=== PATIENT | female | born 1955 | race Caucasian/White ===

== ENCOUNTER → 2017-03-08 | Outpatient (CLI) | payer BC | LOC: FIMAGING 15:21 | PROVIDERS: ATTEND Orthopaedic Surgery | DX: M16.0 Bilateral primary osteoarthritis of hip (principal); M46.1 Sacroiliitis, not elsewhere classified ==

== ENCOUNTER → 2017-03-18 | Outpatient (CLI) | payer BC ==
[~2017-03-18] MED LIST: GADOBUTROL 10 ML VIAL IVP ONE
== END ==
LOC: FIMAGING 08:47
PROVIDERS: ATTEND Physician Assistant
DX: M99.85 Other biomechanical lesions of pelvic region (principal); M16.0 Bilateral primary osteoarthritis of hip; M85.451 Solitary bone cyst, right pelvis; M85.452 Solitary bone cyst, left pelvis; M65.88 Other synovitis and tenosynovitis, other site
CPT/HCPCS: A9585

== ENCOUNTER 2017-03-24 07:56 | Inpatient (IN) | payer BC ==
[~2017-03-24 07:56] MED LIST changes: -GADOBUTROL 10 ML VIAL IVP ONE; +ROPIVACAINE 0.2% 80 MG, EPINEPHrine 0.2 MG, KETOROLAC TROMETHAMINE 30 MG in BAG 0 ML IU ONE; +TRANEXAMIC ACID 3,000 MG in NS 50 ML IRR ONE; +TRANEXAMIC ACID 3,000 MG/50 ML BAG IRR ONE
[2017-03-24] MEDS ORDERED: LR 1,000 ML IV ONE (09:00)
[2017-03-24] MEDS ORDERED: ACETAMINOPHEN 325 MG TAB PO ONE (09:02)
[2017-03-24] MEDS ORDERED: ceFAZolin 2 GM/SWFI 2 GM/20 ML SYR IVP ONE (09:02)
[2017-03-24] MEDS ORDERED: DEXAMETHASONE 4 MG/ML VIAL IVP ONE (09:02)
[2017-03-24] MEDS ORDERED: FAMOTIDINE 20 MG TAB PO ONE (09:02)
--- NOTE | 2017-03-24 09:05 | PDHPUP ---
History & Physical Update H&P update statement: This history and physical update is based on an assessment of the patient which was completed after admission or registration (within 24 hours), but prior to the surgery/procedure. H&P update: H&P reviewed & patient examined, no change in patient's condition since H&P completed
--- NOTE | 2017-03-24 10:31 | PDANEPAE ---
ANE Past Medical History - Cardiovascular History Hx Hypertension: Yes Hx Arrhythmias: No Hx Chest Pain: No Hx Coronary Artery / Peripheral Vascular Disease: No Hx CHF / Valvular Disease: No Hx Palpitations: No - Pulmonary History Hx COPD: No Hx Asthma/Reactive Airway Disease: No Hx Recent Upper Respiratory Infection: No Hx Oxygen in Use at Home: No Hx Sleep Apnea: No Sleep Apnea Screening Result - Last Documented: Negative - Neurologic History Hx Cerebrovascular Accident: No Hx Seizures: No Hx Dementia: No - Endocrine History Hx Diabetes: No - Renal History Hx Renal Disorders: No - Liver History Hx Hepatic Disorders: No - Neurological & Psychiatric Hx Hx Neurological and Psychiatric Disorders: No - Cancer History Hx Cancer: No - Congenital Disorder History Hx Congenital Disorders: No - GI History Hx Gastrointestinal Disorders: No - Other Health History Other Health History: NONE - Chronic Pain History Chronic Pain: Yes (BILAT KNEES) - Surgical History Prior Surgeries: right knee meniscus repair ANE Review of Systems Review of Systems: - Exercise capacity METS (RN): 5 METS ANE Patient History - Allergies Allergies/Adverse Reactions: No Known Allergies Allergy (Verified 03/24/17 09:51) - Home Medications Home Medications: Atorvastatin Calcium [Lipitor 20 mg (*)] 20 mg PO HS 02/26/17 [Last Taken 20:00] Cholecalciferol Vit D3 [Vitamin D3 (*)] 1,000 units PO DAILY 02/26/17 [Last Taken 03/10/17] Herbals/Supplements -Info Only 1 ea PO DAILY 02/26/17 [Last Taken 03/10/17] Levothyroxine [Synthroid 125 mcg (*)] 125 mcg PO HS 02/26/17 [Last Taken 20:00] Valsartan [Diovan (*)] 80 mg PO HS 02/26/17 [Last Taken 03/23/17 20:00] - NPO status NPO Since - Liquids (Date): 03/23/17 NPO Since - Liquids (Time): 22:00 NPO Since - Solids (Date): 03/23/17 NPO Since - Solids (Time): 20:00 - Smoking Hx Smoking Status: Former smoker - Family Anes Hx Family Hx Anesthesia Complications: none ANE Labs/Vital Signs - Vital Signs Blood Pressure: 124/81 Heart Rate: 78 Respiratory Rate: 16 O2 Sat (%): 94 Height: 170.18 cm Weight: 61.235 kg
[2017-03-24] MEDS ORDERED: MIDAZOLAM 2 MG/2 ML VIAL ONE (10:32)
[2017-03-24] MEDS ORDERED: PROPOFOL/EMULSION 500 MG/50 ML BOTTLE IV ONE ×2 (10:38→11:25)
[2017-03-24] MEDS ORDERED: LIDOCAINE 2% 5 ML SDV ONE (10:38)
[2017-03-24] MEDS ORDERED: NALOXONE HCL 0.4 MG/ML INJ IVP PRN (11:50)
[2017-03-24] MEDS ORDERED: ONDANSETRON 4 MG/2 ML VIAL IVP PRN ×2 (11:50→12:03)
[2017-03-24] MEDS ORDERED: diphenhydrAMINE 25 MG CAP PO PRN (12:03)
[2017-03-24] MEDS ORDERED: TEMAZEPAM 15 MG CAP PO PRN (12:03)
[2017-03-24] MEDS ORDERED: POLYETHYLENE GLYCOL 3350 17 GM PKT PO PRN (12:03)
[2017-03-24] MEDS ORDERED: MAGNESIUM HYDROXIDE 30 ML UDCUP PO PRN (12:03)
[2017-03-24] MEDS ORDERED: PROMETHAZINE HCL 25 MG SUPPR PR PRN (12:03)
[2017-03-24] MEDS ORDERED: LACTULOSE 20 GM/30 ML UDCUP PO PRN (12:03)
[2017-03-24] MEDS ORDERED: PROMETHAZINE HCL 25 MG/ML INJ IVP PRN (12:03)
[2017-03-24] MEDS ORDERED: METOCLOPRAMIDE 10 MG/2 ML VIAL IVP PRN (12:03)
[2017-03-24] MEDS ORDERED: DIPHENOXYLATE/ATROPINE LOMOTIL 1 TAB PO PRN (12:03)
[2017-03-24] MEDS ORDERED: ONDANSETRON DISINTEGRATING 4 MG TAB PO PRN (12:03)
[2017-03-24] MEDS ORDERED: BISACODYL 10 MG SUPP PR PRN (12:03)
--- NOTE | 2017-03-24 12:04 | POSTOPPROG ---
Post Op Note Date of Operation: 03/24/17 Surgeon: Mc Bear Interpretive Program Coordinator: marky bear Anesthesiologist: dr. guzman Anesthesia: Spinal Pre-op Diagnosis: right hip OA Post-op Diagnosis: same Indication: right hip pain due to OA that failed conservative measures Procedure: R FELISHA ant approach, robot assisted Findings: severe hip OA Inf/Abcess present in the surg proc area at time of surgery?: No EBL: 100-500
--- NOTE | 2017-03-24 12:14 | POSTANESTH ---
Post Anesthetic Evaluation Cardiovascular Status: Similar to Pre-Op Cond Respiratory Status: Similar to Pre-op Cond. Level of Consciousness/Mental Status: Can Participate in Eval Pain Control: Adequate, Prn Tx Ordered Nausea/Vomiting Control: Adequate, Prn Tx Ordered Complications Possibly Related to Anesthesia: None Noted
[2017-03-24] MEDS ORDERED: HYDROmorphONE/DILAUDID 1 MG/ML INJ ONE (12:15)
[2017-03-24] MEDS ORDERED: fentaNYL 100 MCG/2 ML INJ ONE (12:15)
[2017-03-24] MEDS: fentaNYL 100 MCG/2 ML INJ IVP PRN ×2 (12:17→12:40)
[2017-03-24] MEDS: HYDROmorphONE/DILAUDID 1 MG/ML INJ IVP PRN ×3 (12:18→12:58)
[2017-03-24] MEDS ORDERED: LR 1,000 ML IV SCH (12:30)
[2017-03-24] MEDS: oxyCODONE IR 5 MG TAB PO PRN ×3 (13:36→21:34)
[2017-03-24] MEDS: ceFAZolin 2 GM/DEXTROSE 100 ML IV SCH ×2 (14:44→21:36)
[2017-03-24] MEDS: ACETAMINOPHEN 325 MG TAB PO SCH ×2 (17:52→22:23)
[2017-03-24] MEDS ORDERED: ATORVASTATIN CALCIUM 20 MG TAB PO SCH (21:00)
[2017-03-24] MEDS ORDERED: LEVOTHYROXINE 125 MCG TAB PO SCH (21:00)
[2017-03-24] MEDS ORDERED: VALSARTAN 80 MG TAB PO SCH (21:00)
[2017-03-24] MEDS: CYCLOBENZAPRINE 10 MG TAB PO PRN (21:34)
[2017-03-24] MEDS: SENNOSIDES/DOCUSATE SODIUM TAB PO SCH (21:35)
[2017-03-24] MEDS: FAMOTIDINE 20 MG TAB PO SCH (21:35)
[2017-03-24] MEDS: ASPIRIN 325 MG TAB PO SCH (22:23)
[2017-03-25] MEDS: oxyCODONE IR 5 MG TAB PO PRN ×3 (01:53→10:04)
[2017-03-25 04:48] VITALS: PULSE 77; O2SAT 95
[2017-03-25] MEDS: ACETAMINOPHEN 325 MG TAB PO SCH (04:54)
[2017-03-25] MEDS: CYCLOBENZAPRINE 10 MG TAB PO PRN (04:55)
--- NOTE | 2017-03-25 05:37 | GOP ---
[f rep st] OPERATIVE REPORT DATE OF OPERATION: 03/24/2017 SURGEON: Sharon Paul MD DERMATOLOGY PROCEDURAL PHYSICIAN: ALFONSO Velázquez. ANESTHESIA: Spinal. PREOPERATIVE DIAGNOSIS: Right hip osteoarthritis. POSTOPERATIVE DIAGNOSIS: Right hip osteoarthritis. PROCEDURE PERFORMED: Right total hip arthroplasty with computer navigation. FINDINGS: ESTIMATED BLOOD LOSS: 200 cc. INDICATIONS: The patient has progressively worsening arthritis of the hip which has failed medical management. The patient understands the treatment options including continued non-operative care and has selected surgical intervention. The patient has decided to undergo total hip arthroplasty via the direct anterior approach, understanding the risks of the procedure including , but not limited to, neurovascular injury, infection, persistent pain, component wear and loosening, deep venous thrombosis, pulmonary embolism, limb length inequality, hip instability (including dislocation), and intra-operative fractures. DESCRIPTION OF PROCEDURE: After proper identification of the patient including verification and marking the surgical site, the patient was brought to the operating room and placed in the supine position. All bony prominences were well padded. Anesthesia was induced without complication and intravenous prophylactic antibiotics were administered prior to skin incision. The operative leg was placed in the Trumpf Arch table extension and the well leg in a Yellofin leg rob. The patient was prepped and draped in the usual sterile fashion. The C-arm was draped for intra-operative fluoroscopy to check acetabular position, femoral component position including leg length and femoral offset. Attention was then drawn to surgical exposure of the hip. An incision was made with a #10 Bard Mo blade starting 3 cm lateral and 3 cm distal to the anterior superior iliac spine measuring 8-10 cm and coursing distally toward the greater trochanter. The skin and subcutaneous tissues were divided sharply down to the fascia eugenia. The fascia eugenia was incised in line with the skin incision exposing the underlying tensor fascia eugenia muscle. The muscle was bluntly elevated from the fascia and the first extracapsular Cobra retractor was placed laterally at the junction of the superior femoral neck and greater trochanter. The lateral femoral circumflex vessels were identified, cauterized , and divided with the Aquamantys bipolar cautery. The deep investing fascia of the TFL was divided to allow proper mobilization of the muscle preventing damage during the retraction. The reflected head of the rectus femoris muscle was elevated off the anterior hip capsule and a medial Cobra retractor was placed just proximal to the lesser trochanter. The anterior capsulotomy was made sharply from the superolateral acetabulum to the saddle junction of the superior femoral neck and greater trochanter, then coursing inferomedial towards the lesser trochanter. The retractors were then placed in the intracapsular position for femoral neck osteotomy. Corresponding to pre-operative templating, the osteotomy was made with the oscillating saw carefully protecting the greater trochanter and soft tissues. The femoral head was removed from the acetabulum with a corkscrew and confirmed to be severely arthritic with exposed bone, deformity and osteophytes. Similar findings were confirmed in the acetabulum. The Arch table extension was then placed in 40 degrees external rotation. Attention was then drawn to the acetabular preparation. After placement of the anterior and posterior Cobra retractors outside the labrum and intracapsular, the circumferential labrum was removed sharply. The foveal contents were then removed and hemostasis obtained with cautery. The first reamer selected was sized using the removed femoral head. Reaming began with medialization and then commenced in 2 mm increments at 45 degrees of abduction and 15 degrees of anteversion using fluoroscopic navigation. Reaming ceased 1 mm less than the definitive acetabular component and corresponded to the pre-operative templating. The final acetabular component was inserted using fluoroscopy to achieve proper orientation yielding excellent purchase and stability in the acetabulum. The final acetabular liner was then placed and its seating confirmed. Attention was then turned to the femur. The Arch table extension was placed in extension and adduction, delivering the osteotomized femoral neck into the wound. A 2-pronged femoral elevator was placed at the calcar and another at the tip of the greater trochanter. The posterolateral capsule was released with cautery allowing mobilization of the femur lateral and anterior for preparation. The external rotators were visualized and preserved. A curette and rongeur were used to open the starting point for broaching. Serial broaching started with the #0 broach and ended with the broach that exhibited excellent fit in the proximal femur. A change in pitch during mallet strikes was accompanied by the inability to advance the broach any further. The trial reduction was performed and fluoroscopic navigation was utilized to check limb length. Adjustments were made to equalize limb length accordingly. After the final trials were accepted they were removed and the wound was copiously lavaged. The femoral component was seated to the same depth as the final broach and the femoral head was impacted onto the clean trunnion. The hip was then reduced for the final time and once more fluoroscopy was used to check that limb length equality was achieved. The wound was irrigated and closed in layers, the fascia eugenia with 2-0 Quill, the subcutaneous tissue with 2-0 Quill, and the skin with Dermabond. Sterile dressings were applied. Final sharps and sponge counts were accurate. The patient was then transferred to a hospital bed and brought to the recovery room in stable condition. IMPLANTS: Accolade II size 5 at 127. Acetabular component a 52 mm Tritanium. The liner is a Trident X3 32 mm. The head is a Biolox Delta 32 mm -4. /[id number]/MODL MTDD
[2017-03-25 08:06] VITALS: BP 100/57; RESP 16; TEMP 98.3
[2017-03-25] MEDS: FAMOTIDINE 20 MG TAB PO SCH (08:23)
[2017-03-25] MEDS: ASPIRIN 325 MG TAB PO SCH (08:23)
[2017-03-25] MEDS: SENNOSIDES/DOCUSATE SODIUM TAB PO SCH (08:24)
--- NOTE | 2017-03-25 09:06 | SOAPPROG ---
SOAP Progress Note Assessment/Plan: Assessment: Patient is doing well POD 1 s/p R FELISHA Pain management: pain is well controlled on oral pain meds. VTE ppx: recommend aspirin daily for 3 weeks, cont ROMINA and SCDs Anemia: level is expected initially postop. Asymptomatic. Continue to monitor D/c planning: d/c to home today pending release from PT Plan: 03/25/17 09:02 Subjective: Dulce is doing well today, denies SOB, chest pain and N/V. Objective: Vital Signs Temp Pulse Resp BP Pulse Ox 36.8 C 77 16 100/57 L 95 03/25/17 08:04 03/25/17 08:04 03/25/17 08:04 03/25/17 08:04 03/25/17 08:04 Laboratory Results 03/25/17 04:40 03/24/17 03/25/17 03/26/17 05:59 05:59 05:59 Intake Total 2530 Output Total 450 Balance 2080 RLE; incision is dressing is clean and dry, NVI, +pf/df ICD10 Worksheet Patient Problems: Problems Problem Status Onset Primary localized osteoarthritis of right hip Acute
--- NOTE | 2017-03-25 11:53 | ASDISCHSUM ---
Discharge Information Plan Status:Home with No Needs Medically Cleared to Leave: Discharge Date:03/25/2017 11:40 AM CM D/C Disposition:Home, Routine, Self-Care ADT D/C Disposition:Home, Routine, Self-Care Projected Discharge Date:03/25/2017 11:40 AM Transportation at D/C: Discharge Delay Reason: Follow-Up Date:03/25/2017 11:40 AM Discharge Slot: Final Diagnosis: Placement Information Patient Contact Information Contact Name:TRAY Relationship: Address:[address] City:[place] Alternate Phone: State/Zip Code:[place] [address] Email: Financial Information Financial Class:HMO and PPO Plans Primary Plan Desc: OUT OF STATE PPO Primary Plan Number:[id number] Secondary Plan Desc: Secondary Plan Number: Assessment Information Intervention Information
--- NOTE | 2017-03-25 11:53 | ASDISCHSUM ---
Discharge Information Plan Status:Home with No Needs Medically Cleared to Leave: Discharge Date:03/25/2017 11:40 AM CM D/C Disposition:Home, Routine, Self-Care ADT D/C Disposition:Home, Routine, Self-Care Projected Discharge Date:03/25/2017 11:40 AM Transportation at D/C: Discharge Delay Reason: Follow-Up Date:03/25/2017 11:40 AM Discharge Slot: Final Diagnosis: Placement Information Patient Contact Information Contact Name:TRAY Relationship: Address:[address] City:[place] Alternate Phone: State/Zip Code:[place] [address] Email: Financial Information Financial Class:HMO and PPO Plans Primary Plan Desc: OUT OF STATE PPO Primary Plan Number:[id number] Secondary Plan Desc: Secondary Plan Number: Assessment Information Intervention Information
--- NOTE | 2017-03-25 11:53 | ASDISCHSUM ---
Discharge Information Plan Status:Home with No Needs Medically Cleared to Leave: Discharge Date:03/25/2017 11:40 AM CM D/C Disposition:Home, Routine, Self-Care ADT D/C Disposition:Home, Routine, Self-Care Projected Discharge Date:03/25/2017 11:40 AM Transportation at D/C: Discharge Delay Reason: Follow-Up Date:03/25/2017 11:40 AM Discharge Slot: Final Diagnosis: Placement Information Patient Contact Information Contact Name:TRAY Relationship: Address:[address] City:[place] Alternate Phone: State/Zip Code:[place] [address] Email: Financial Information Financial Class:HMO and PPO Plans Primary Plan Desc: OUT OF STATE PPO Primary Plan Number:[id number] Secondary Plan Desc: Secondary Plan Number: Assessment Information Intervention Information
== END 2017-03-25 11:40 | disposition home or self-care (01) | DRG 470 ==
LOC: F3N 07:56
PROVIDERS: ADMIT Orthopaedic Surgery; ATTEND Orthopaedic Surgery
DX: M16.11 Unilateral primary osteoarthritis, right hip (principal); I10 Essential (primary) hypertension; Z87.891 Personal history of nicotine dependence
CPT/HCPCS: 97110-GP; 97116-GP; 97161-GP; 97165-GO; 97535-GO; J0171; J0690; J1100; J1170; J1885; J2250; J2704; J2795; J3010

== ENCOUNTER → 2017-08-31 | Outpatient (CLI) | payer BC | LOC: FIMAGING 12:17 | PROVIDERS: ATTEND Family Medicine | DX: M25.521 Pain in right elbow (principal); M79.89 Other specified soft tissue disorders ==